=== PATIENT | female | born 1965 | race Hispanic/Latino ===

== ENCOUNTER 2018-01-26 09:48 | Emergency (ER) | payer OTHER ==
[2018-01-26 10:00] VITALS: RESP 18; O2SAT 98
[2018-01-26] MEDS ORDERED: Tdap Vaccine 0.5 ml Vial (10-64 yrs) IM ONE ×2 (10:30→10:57)
[2018-01-26] MEDS ORDERED: Lidocaine 2% w Epi 1:100,000 Inj IJ STA (10:36)
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
[2018-01-26] MEDS ORDERED: Lidocaine 2% w Epi 1:100,000 Inj IJ ONE (10:57)
[2018-01-26] MEDS ORDERED: Tmp-Smz 800 mg-160 mg DS Tab PO STA (11:30)
[2018-01-26] MEDS ORDERED: Tmp-Smz 800 mg-160 mg DS Tab ONE (11:40)
[2018-01-26 11:46] VITALS: BP 111/76; PULSE 86; TEMP 98.8
== END 2018-01-26 11:45 | disposition home or self-care (01) ==
LOC: H.ER 09:48
DX: S01.81XA Laceration without foreign body of other part of head, initial encounter (principal); Y04.0XXA Assault by unarmed brawl or fight, initial encounter; Y92.89 Other specified places as the place of occurrence of the external cause; F41.9 Anxiety disorder, unspecified